=== PATIENT | female | born 1970 | race Caucasian/White ===

== ENCOUNTER 2022-04-02 15:58 | Emergency (ER) | payer MEDICAID ==
[~2022-04-02] VITALS: Ht 157.5 cm; Wt 86.0 kg
[2022-04-02] MEDS ORDERED: POLY17PO3 MT (17:06)
[2022-04-02] MEDS ORDERED: HYDR30CR80 TP (17:06)
[2022-04-02 17:25] VITALS: BP 141/72
== END 2022-04-02 17:27 | disposition home or self-care (01) ==
LOC: ER 16:20
DX: K64.4 Residual hemorrhoidal skin tags (principal); I10 Essential (primary) hypertension; Z90.49 Acquired absence of other specified parts of digestive tract
CPT/HCPCS: 99283

== ENCOUNTER 2023-12-07 11:42 | Emergency (ER) | payer MEDICAID, OTHER ==
[~2023-12-07] VITALS: Ht 160 cm; Wt 91.0 kg
[~2023-12-07 11:42] MED LIST: HYDR30CR80 TP; POLY17PO3 MT
[2023-12-07 12:08] VITALS: O2SAT 98
[2023-12-07 13:00] LABS: CLARITY URINE TURBID (CLEAR); COLOR URINE DARK YELLOW (YELLOW); GLUCOSE URINE NEGATIVE (NEGATIVE); KETONES URINE TRACE (NEGATIVE); LEUKOCYTE ESTERASE URINE 3+ (NEGATIVE); NITRITE URINE NEGATIVE (NEGATIVE); OCCULT BLOOD URINE 2+ (NEGATIVE); PH URINE 5.5 (4.5-8.0); PROTEIN URINE TRACE (NEGATIVE); SPECIFIC GRAVITY URINE 1.028 (1.005-1.030)
[2023-12-07 13:23] LABS: BACTERIA URINE 1+; CALCIUM OXALATE CRYSTALS URINE 2+ /lpf; SQUAMOUS EPITHELIAL CELL URINE 1+ /lpf (RARE/1+); TRICHOMONAS URINE FEW; WBC URINE 25-50 /hpf (0-2); YEAST URINE NONE SEEN
[2023-12-07] MEDS ORDERED: CEPH500T MT (15:03)
[2023-12-07] MEDS ORDERED: METR-167 MT (15:03)
[2023-12-07 15:50] VITALS: BP 130/78; PULSE 83; RESP 18; TEMP 98
[2023-12-12 04:10] LABS: CHLAMYDIA TRACHOMATIS NAA Negative (Negative); NEISSERIA GONORRHOEAE NAA Negative (Negative)
== END 2023-12-07 15:51 | disposition home or self-care (01) ==
LOC: ER 11:42
DX: A59.01 Trichomonal vulvovaginitis (principal); N39.0 Urinary tract infection, site not specified; E11.9 Type 2 diabetes mellitus without complications; I10 Essential (primary) hypertension; Z90.49 Acquired absence of other specified parts of digestive tract
CPT/HCPCS: 87491; 87591; 81003; 81025; 87086; 87210; 99284; Z7610

== ENCOUNTER 2024-04-04 13:27 | Emergency (ER) | payer MEDICAID ==
[~2024-04-04] VITALS: Ht 160 cm; Wt 85.0 kg
[~2024-04-04 13:27] MED LIST changes: +CEPH500T MT; +METR-167 MT
[2024-04-04 13:42] VITALS: BP 136/93; PULSE 90; RESP 18; TEMP 98.1; O2SAT 97
[2024-04-04] MEDS ORDERED: DIPHENHYDRAMINE 50MG CAPSULE PO ONE (17:15)
[2024-04-04] MEDS ORDERED: B50 MT (17:24)
[2024-04-04] MEDS ORDERED: P20 MT (17:24)
[2024-04-04] MEDS ORDERED: FAMO40TA70 MT (17:24)
[2024-04-04] MEDS: PREDNISONE 20MG TABLET PO ONE (17:48)
[2024-04-04] MEDS: DIPHENHYDRAMINE 25MG CAPSULE PO NR (17:48)
[2024-04-04] MEDS: FAMOTIDINE 20MG TABLET PO SCH (17:49)
== END 2024-04-04 17:51 | disposition home or self-care (01) ==
LOC: ER 13:27
DX: T78.40XA Allergy, unspecified, initial encounter (principal); E11.9 Type 2 diabetes mellitus without complications; E78.00 Pure hypercholesterolemia, unspecified; I10 Essential (primary) hypertension; Z90.49 Acquired absence of other specified parts of digestive tract; X58.XXXA Exposure to other specified factors, initial encounter
CPT/HCPCS: 99284; Q0163; J7512